=== PATIENT | female | born 1945 | race African-American/Black ===

== ENCOUNTER 2020-06-25 19:00 | Inpatient (IN) | payer MEDICARE ==
[2020-06-25 19:30] VITALS: BP 159/104
--- NOTE | 2020-06-25 20:30 | NUR ---
MELINA, PATIENT'S DAUGHTER CALLED. CONDITION UDATE GIVEN. QUESTIONS ANSWERED. SPOKE WITH DAUGHTER 20 MINUTES.
--- NOTE | 2020-06-25 21:00 | NUR ---
PT ARRIVED TO UNIT AT 1900 WITH [facility] STAFF. PT USES A WHEELCHAIR TO AMBULTE AND A HOIER LIFT TO ASSIST WITH TRANSFERS. CALM AND COOPERATIVE WITH STAFF. QUIET AND REFUSES SNACKS. CONSENT OBTAINED FROM JAYDEN RAMOS WHO IS PTS BROTHER. CODE WORD 1116 GIVEN AND POLICIES REVIEWED. PT IS A FULL CODE. HE RELATES THAT SHE HAS RECEIVED HER FINAL COVID SHOT IN APRIL. NEGATIVE PCR DONE ON 06/24/20. SHE DOESNT NEED A NEW COVID SWAB UPON ARRIVAL SINCE IT IS WITHIN 48 HOURS PER [facility] DIRECTOR. PT ABLE TO VOICE NEEDS AND WANTS.
[2020-06-25] MEDS ORDERED: NORVASC2.5 MG PO (22:56)
[2020-06-25] MEDS ORDERED: IMODIUM2 MG PO (22:58)
[2020-06-25] MEDS ORDERED: PAXIL10 MG PO (22:59)
[2020-06-25] MEDS ORDERED: PHAZYME 125 MG125 MG PO (22:59)
[2020-06-25] MEDS ORDERED: THERMOTABS 1 GM1 GM PO (23:00)
[2020-06-25] MEDS ORDERED: ULTRAM50 MG PO (23:00)
[2020-06-25] MEDS ORDERED: ACETAMINOPHEN500 M1 PO (23:01)
--- NOTE | 2020-06-25 23:30 | NUR ---
PT BLOOD PRESSURE 159/104. DR. BARFIELD NOTIFIED. PT ON AMLODIPINE 2.[address] BARFIELD STATED TO START NEW ORDERS OF AMLODIPINE BESYLATE 5 MG PO DAILY. VERIFIED READBACK TO [facility] AND CONFIRMED.
--- NOTE | 2020-06-26 03:16 | NUR ---
PT APPEARS DISTRUSTFUL OF STAFF. SHE REQUESTS WATER WITHOUT A LID OR STRAW, AND REFUSES TO DRINK. PROVIDED UNOPENED WATER BOTTLE. PT EXPRESSES DISSATIFICATION. PT REFUSES TO GO TO BED AND DEMANDS TO SIT IN WHEELCHAIR IN HALLWAY. STATES "I WOULD LIKE TO REQUEST A CHANGE OF VENUE." INFORMED PT OF POLICIES. PT APPEARS ANXIOUS AND STATES "I WOULD LIKE TO SEE MY ELECTRIC LINEMAN NOW." UNABLE TO REDIRECT AT THIS TIME.
--- NOTE | 2020-06-26 04:27 | NUR ---
URINE SAMPLE COLLECTED VIA STERILE PROCEDURE. PT TOLERATED WELL. SENT TO LAB.
[2020-06-26 04:32] VITALS: BP 159/104; BMI 33.7
[2020-06-26 05:46] LABS: BILIRUBIN NEGATIVE (NEGATIVE); KETONE MODERATE mg/dL (NEGATIVE); NITRITE NEGATIVE (NEGATIVE); UROBILINOGEN NORMAL mg/dL (< 2)
[2020-06-26 05:47] LABS: BACTERIA MANY HPF (NONE SEEN); SQUAMOUS EPITHELIAL 0-5 HPF (0-4); WHITE CELLS - URINE 25-50 HPF (0-4)
[2020-06-26 06:00] LABS: BASOPHILS 0.2 % (0-2); EOSINOPHILS 0.4 % (0-7); HEMATOCRIT 41.8 % (36.0-48.0); HEMOGLOBIN 13.4 g/dL (12-16); IMMATURE GRANULOCYTES 0.2 % (0-5); LYMPHOCYTE ABS# 1.19 10x3/uL (1.18-3.74); LYMPHOCYTES 21.7 % (15-50); MCH 29.6 pg (26.0-34.0); MCHC 32.1 g/dL (31.0-37.0); MCV 92.5 fL (80.0-100.0); MEAN PLATELET VOLUME 9.7 fL (7.4-10.4); MONOCYTES 9.9 % (2-11); NEUTROPHIL ABS# 3.71 10x3/uL (1.56-6.13); NEUTROPHILS 67.6 % (40-80); PLATELET COUNT 192 10x3/uL (130-400); RBC 4.52 10x6/uL (4.00-5.40); RDW 15.5 % (11.5-14.5); WBC 5.5 10x3/uL (4.8-10.8)
[2020-06-26 06:55] LABS: ALBUMIN 3.2 g/dL (3.4-5.0); ANION GAP 15.6 mmol/L (8-16); BILIRUBIN - TOTAL 0.46 mg/dL (0.2-1.3); CALCIUM 9.1 mg/dL (8.5-10.1); CARBON DIOXIDE 25.4 mmol/L (21.0-32.0); CHOL - HDL RATIO 2.3 ratio (2.3-4.1); CREATININE - SERUM 0.9 mg/dL (0.6-1.3); LDL-HDL RATIO 1.2 ratio (1.5-3.5); PROTEIN - SERUM 7.7 g/dL (6.4-8.2); THYROID STIMULATING HORMONE 0.46 uIU/mL (0.36-3.74)
[2020-06-26 08:15] VITALS: BP 137/93
[2020-06-26 13:57] VITALS: Wt 81.4 kg
--- NOTE | 2020-06-26 14:07 | NUR ---
nurse spoke with pt daughter at this time. passcode given. she inquired how pt was doing, was she talking or eating. she stated she knew it was her thyroid cause she was not taking medications like she was suppose too. nurse went over admission labs noting the thyroid lab was in normal limits. her urine noted bacteria so as soon as that was cultured for antibiotics. she wanted to know if she was eating or taking medications. nurse stated she did take medications whole at this time. she did not eat breakfast but ate a bit of breakfast. staff that it would be better to wait until the weekend to allow her to settle in before visitors. she was welcome to try a phone call to see how she would handle a phone call. she verbalizied understanding.
--- NOTE | 2020-06-26 14:26 | NUR ---
pt laying in bed at this time. pt has been calm and cooperative with staff. pt was compliant with staff with care and medications this A.M. pt is a total care and lift. pt did assist with ADLS. no parnoid behavior noted thus far. pt spoke with staff calm and friendly. bed alarm in place and active. will cont plan of care.
[2020-06-26 20:00] VITALS: BP 132/71
--- NOTE | 2020-06-26 23:08 | NUR ---
PT IS RECEIVED IN HER ROOM IN BED. QUIET AND WITHDRAWN. VSS. PT WATCHFUL OF STAFF. NO PM MEDICATIONS ORDERED. REFUSES HS SNACK. PT IS A TOTAL ASSIST. EASY TO REDIRECT.
[2020-06-27 07:16] LABS: RAPID PLASMA REAGIN Non Reactive (Non Reactive)
[2020-06-27 09:25] VITALS: BP 154/96
--- NOTE | 2020-06-27 14:31 | NUR ---
ALERT, CALM, QUIET. DURING MORNING MED PASS, PATIENT CHEEKED LEVAQUIN AND LATER SPIT IT ON BED. PATIENT WAS LATER COMPLIANT WITH HER LEVAQUIN. MEDS ADMIN PER ORDERS. NO FURTHER ADVERSE BEHAVIORS NOTED. CONT. POC, MONITORING FOR CHEEKING OF MEDS.
--- NOTE | 2020-06-27 22:21 | NUR ---
PATIENT IN BED WITH EYES CLOSED. NO MEDS DUES THIS EVENING. RECEIVED IN REPORT THAT SHE IS VERY WATCHFUL OF STAFF. SHE HAS TO BE WATCHED TAKING MEDS BECAUSE SHE WILL CHEEK THEM. WILL FOLLOW POC
[2020-06-28 00:03] VITALS: BP 149/69
[2020-06-28 09:11] VITALS: BP 160/113
--- NOTE | 2020-06-28 18:57 | NUR ---
Patient rec'd this am lying in bed. She is A/O times 1 to person. She is med compliant and takes meds whole. She likes to lie in bed and stay to herself. She did not attend any socialization today
[2020-06-28 20:00] VITALS: BP 142/71
--- NOTE | 2020-06-28 20:58 | NUR ---
RECEIVED PATIENT IN ROOM, SHE IS AWAKE, ALERT AND ORIENTED, HOWEVER SHE IS SUSPICIOUS OF EVERYTHING, SHE WAS COMPLIANT WITH WITH MEDS THEY WERE OPENED IN FRONT OF HER AND EXPLAINED WHAT THEY WERE FOR. SHE IS ABLE TO MAKE ALL OF HER NEEDS KNOWN. WILL FOLLOW POC
[2020-06-29 09:53] VITALS: BP 130/70
--- NOTE | 2020-06-29 11:31 | PSY ---
PATIENT NAME:MOHIT CELIS MEDICAL RECORD: [id number] : 43 LOCATION:[facility] ADMISSION DATE: 06/25/20 ACCOUNT: [id number] PSYCHIATRIC EVALUATION DATE OF EVALUATION: 06/26/20 IDENTIFYING DATA: The patient is a 74-year-old female and she is admitted to the hospital on a voluntary basis. CHIEF COMPLAINT: Some aggression and depression. HISTORY OF PRESENT ILLNESS: The patient resides in [facility]. The patient has been refusing medications for the last 5 days. She has also been having some behaviors where she is refusing breakfast and lunch. She is also refusing to have a bath and we helped with activity of daily living and has been incontinent. She has also been easily agitated and difficult to redirect. She at one point remained in her bed with her eyes closed, wrapped up in towels. She was anxious and not happy and wanted to be transferred to a different place. Then, she refused to go to bed and then insists on staying in her wheelchair in the hallway and she stated "I want to see my magnetic prospector now." She is transferred by a Сергей lift. She is able to propel herself in the wheelchair. Also, the patient reports that she is not sure why she is here, just that she did something that she just got in trouble and she does not know why. PAST MEDICAL HISTORY: Significant for hypertension, hypothyroidism, and muscle weakness and glaucoma. PAST PSYCHIATRIC HISTORY: The patient denies any history; however, there is a diagnosis of depression. The patient states she does not want to talk about it. FAMILY HISTORY: None is known, noncontributory. ALLERGIES: INCLUDE PENICILLIN, IODINE, AND CODEINE. CURRENT MEDICATIONS: Include Norvasc 2.5 mg, Imodium 2 mg, p.o. Paxil 10 mg, Simethicone 125 mg, sodium chloride 1 gram, tramadol 50 mg q.6 hours p.r.n. for pain, and acetaminophen 1000 mg p.o. q.6 hours for pain. SOCIAL HISTORY: The patient states that she has a son. She never smoked, never used alcohol. No recreational drug use. The patient will not disclose where she used to work or anything about her education nor personal information. MENTAL STATUS EXAM: The patient is alert and oriented to person, place, time, disoriented to situation. Her speech is soft, low tone, volume that escalates. Eye contact is fair. Her posture is within normal limits. There is some evidence of psychomotor retardation. Her mood is depressed. Her affect is flat, narrow in range. The patient denies any suicidal or homicidal ideation. She also denies seeing any auditory or visual hallucinations. Her general fund of knowledge is probably appropriate for her education level. Her thought processes are guarded and has decreased concentration and abstraction abilities. There appears at this point, the patient has denied any history of sexual, physical, or emotional trauma. Her strengths are her ability to participate in treatment. Her weaknesses are her psychosocial stressors. ASSESSMENT: AXIS I: Anxiety and depression. AXIS II. Maybe some cluster B personality characteristics. AXIS III: Hypertension, hypothyroidism, and chronic physical debility. AXIS IV: Moderate stressors. AXIS V: Global assessment of functioning is 40. PLAN: At this time, the patient is going to be admitted to the hospital for comprehensive medical, psychological, and social evaluation. She will be treated with both mood, thought, and memory enhancing medications. Her long-term prognosis is fair. TRANSINT:[id number] Voice Confirmation ID: [id number] DOCUMENT ID: [id number] Dictated By: DANII JAUREGUI I have interviewed/examined the above patient and agree with these documented findings. DANDRE FULLER MD at 1200 at 1131 CC: [id number] DICTATION DATE: 06/26/201820 AVIONICS TECHNICIAN: 06/26/[address] [facility] [address] [place] [address]
--- NOTE | 2020-06-29 12:04 | NUR ---
RECEIVED PATIENT LYING IN BED WITH EYES OPEN AT THIS TIME. PATIENT IS AWAKE AND ALERT X2. CALM AND COOPERATIVE WITH ASSESSMENT AT THIS TIME. PATIENT DOES NOT ATTEMPT TO ASSIST WITH ADLS. PATIENT DOES SHOW PARANOID BEHAVIOR AT THIS TIME. PATIENT STATED "SHE IS NOT SURE WHAT THOSE MEDICATIONS ARE SHE DOES NOT WANT TO TAKE THOSE MEDS AT THIS TIME." STAFF WILL ATTEMPT AT LATER TIME. PATIENT VOICED CONCERNS ABOUT MEDS BEING CRUSHED IN APPLESAUCE OR PUDDING. PATIENT REFUSED X 3 TO TAKE MEDS CRUSHED IN PUDDING OR APPLESAUCE. REDIRECT AND REORIENT NEEDED. FALL PRECAUTIONS IN PLACE FOR SAFETY.
[2020-06-29 19:30] VITALS: BP 116/65
--- NOTE | 2020-06-29 21:05 | NUR ---
RECEIVED PATIENT IN HER ROOM, SHE WAS COMPLIANT WITH MEDS, MEDS OPENED IN FRONT OF HER, NOT TO PARANOID AT THIS TIME. SHE CAN MAKE ALL OF HER NEEDS KNOWN. WILL FOLLOW POC
--- NOTE | 2020-06-30 09:06 | NUR ---
Nutrition Re-Assessment Diet: Regular PO intake: ~20% average x last 9 meals; ate ~58% average yesterday. Appetite improving per MD notes. Last BM: none recorded since admit Wt: 172# (06/26/20) Meds noted: probiotics, abx No new labs. Estimated nutrition needs remain unchanged from initial nutrition assessment at this time. Nutrition diagnosis: Inadequate energy intake r/t AMS, advanced age AEB PO intake ~20% average x last 9 meals. Patient is starting to progress towards meeting nutrition goals. Recommendations/Interventions: -Continue Regular diet. Will continue to honor food preferences. -RD will add Ensure TID. -Will continue to monitor PO intake and wt trend. -RD will follow-up 07/02/20.
[2020-06-30 11:59] VITALS: BP 125/74
--- NOTE | 2020-06-30 15:40 | NUR ---
RECEIVED PATIENT IN BED WITH EYES CLOSED. RESPONDS TO VERBAL STIMULI. AWAKE AND ALERT X1. CALM AND COOPERATIVE WITH ASSESSMENT AT THIS TIME. PRESCRIBED MEDS PROVIDED ORDERED. MEDS REFUSED X3. PATIENT WILL HOLD MEDICATIONS AND EXAMINED THEM SEVERAL MINUTES, THEN REFUSES TO TAKE THEM. PATIENT IS PARANOID REGARDING STAFF THINKS THAT STAFF IS TRYING TO POISON HER. PATIENT REQUESTS ANY TIME A DRINK IS BROUGHT INTO HER ROOM THAT IS EMPTIED INTO THE SINK AND TAP WATER IS APPLIED INTO CUP BROUGHT IN PER STAFF. REDIRECT AND REORIENT NEEDED. FALL PRECAUTIONS IN PLACE FOR SAFETY. WILL CONTINUE PLAN OF CARE.
[2020-06-30 22:10] VITALS: BP 139/83
--- NOTE | 2020-06-30 22:18 | NUR ---
PT IS ALERT AND ORIENTED TO SELF ONLY. SHE IS RECEIVED IN HER BED WATCHING OUT THE WINDOW. PT REFUSED MOST OF HER MEDICATIONS STATING THAT SHE DOESNT TAKE ANY OF THOSE AND WILL NOT START TAKING THEM NOW. SHE ONLY WANTED HER NORVASC AND THEY HAD TO BE OPENED IN FRONT OF HER. PT RELATES THAT SHE DOESNT WANT TO PUT POISON IN HER BODY. PT REFUSES HS SNACK. DIFFICULT TO REDIRECT. MONITOR FOR SAFETY.
[2020-07-01 08:00] VITALS: BP 137/70
--- NOTE | 2020-07-01 11:42 | NUR ---
RECEIVED PATIENT IN BED WITH EYES OPEN. AWAKE AND ALERT TO PERSON ONLY. CALM AND COOPERATIVE WITH ASSESSMENT AT THIS TIME. PRESCRIBED MEDICATIONS PROVIDED ORDERED. PATIENT IS NONCOMPLIANT WITH MEDICATIONS AT THIS TIME. PARANOIA NOTED AT THIS TIME. PATIENT EXAMINES MEDICATIONS AND THEN STATES "SHE DOES NOT WANT MEDS." STAFF ENTERS ROOM WITH A GLASS OF WATER, PATIENT REQUEST THAT IT WAS EMPTIED IN THE SINK AND FILLED WITH TAP WATER SO PATIENT CAN SEE THERE IS NOTHING NOTED IN THE GLASS. REDIRECT AND REORIENT NEEDED. FALL PRECAUTIONS IN PLACE FOR SAFETY. WILL CONTINUE PLAN OF CARE.
[2020-07-01 12:46] LABS: BASOPHILS 0.2 % (0-2); EOSINOPHILS 2.8 % (0-7); HEMATOCRIT 40.8 % (36.0-48.0); HEMOGLOBIN 13.4 g/dL (12-16); LYMPHOCYTE ABS# 1.23 10x3/uL (1.18-3.74); LYMPHOCYTES 24.3 % (15-50); MCH 29.9 pg (26.0-34.0); MCHC 32.8 g/dL (31.0-37.0); MCV 91.1 fL (80.0-100.0); MEAN PLATELET VOLUME 9.9 fL (7.4-10.4); MONOCYTES 8.9 % (2-11); NEUTROPHIL ABS# 3.24 10x3/uL (1.56-6.13); NEUTROPHILS 63.8 % (40-80); PLATELET COUNT 154 10x3/uL (130-400); RBC 4.48 10x6/uL (4.00-5.40); RDW 15.3 % (11.5-14.5); WBC 5.1 10x3/uL (4.8-10.8)
[2020-07-01 14:46] LABS: ALBUMIN 2.9 g/dL (3.4-5.0); ALKALINE PHOSPHATASE 76 U/L (30-120); ALT (SGPT) 9 U/L (10-68); BILIRUBIN - TOTAL 0.42 mg/dL (0.2-1.3); CALC OSMOLALITY 277 mosm/kg (275-300); CALCIUM 8.8 mg/dL (8.5-10.1); CARBON DIOXIDE 24.3 mmol/L (21.0-32.0); CHLORIDE - SERUM 104 mmol/L (98-107); CREATININE - SERUM 0.5 mg/dL (0.6-1.3); GLUCOSE 81 mg/dL (74-106); PROTEIN - SERUM 7.2 g/dL (6.4-8.2); SODIUM 139 mmol/L (136-145); UREA NITROGEN 15 mg/dL (7-18); eGFR NON AFRICAN AMERICAN > 90 mL/min (90-120)
--- NOTE | 2020-07-01 15:24 | PN ---
PATIENT:MOHIT CELIS MEDICAL RECORD: [id number] LOCATION:[facility] ADMISSION DATE: 06/25/20 PROGRESS NOTE DATE OF SERVICE: 06/30/2020 SUBJECTIVE: The patient's case was discussed with staff. She has no new complaint. OBJECTIVE: The patient is not eating well. She has been started on Megace and hopefully this will assist with her appetite. I am also going to change her from Paxil to a different antidepressant. ASSESSMENT: Dementia. PLAN: As above, the patient will be treated with antidepressant medication and an appetite stimulant. TRANSINT:[id number] Voice Confirmation ID: [id number] DOCUMENT ID: [id number] DANDRE FULLER MD at 1524 CC: [id number] DICTATION DATE: 06/30/20 1643 SUPERVISOR METER SHOP: 07/01/20 0100 ADM IN [facility] [address] [place] [address]
[2020-07-01 20:16] VITALS: BP 144/81
--- NOTE | 2020-07-01 20:30 | NUR ---
RECEIVED PATIENT IN HALLWAY SITTING IN RECLINER. WITHDRAWN FROM PEERS, AND DOES NOT SOCIALIZE WITH PEERS. CALM AND COOPERATIVE WITH ASSESSMENT. PATIENT REFUSED TO TAKE HER MEDICATIONS TONIGHT. REDIRECTED NEEDED. NOW RESTING QUIETLY IN BED. CONTINUE PLAN OF CARE.
[2020-07-02 08:00] VITALS: BP 128/76
--- NOTE | 2020-07-02 10:38 | NUR ---
A FAMILY MEMBER CALLED FROM [place] DEMANDING THE NAME, LOCATION. NURSE GAVE CORRECT ROOM NUMBER, LOCATION AND NAME OF FACILITY.
--- NOTE | 2020-07-02 11:20 | NUR ---
NURSE SPOKE WITH SON ON HOW SHE WAS DOING AND VISITATION HOURS. PASSCODE GIVEN.
--- NOTE | 2020-07-02 12:39 | NUR ---
Patients son calls with passcode verified. He is inquiring on how his mother is doing. Information given per requested.
--- NOTE | 2020-07-02 15:12 | NUR ---
Nutrition follow-up: Diet order: Regular PO intake for 07/01/20 ~53% average x 3 meals; pt refused all meals 06/30 x 3 Pt has also been refusing medication; nurse reports pt is very paranoid and feels she is being poisened by nurses, medical staff No new wt since admit. Admit wt" 172# No BM recorded; Miralax ordered but unsure if pt is taking Pts po intake improved yesterday. Will continue to provide food choices and honor all food preferences. Will offer nutritional supplements Recomendations: Please get a current wt to chart if medically feasible. Follow-up:
--- NOTE | 2020-07-02 15:18 | PN ---
PATIENT:MOHIT CELIS MEDICAL RECORD: [id number] LOCATION:[facility] ADMISSION DATE: 06/25/20 PROGRESS NOTE DATE OF SERVICE: 07/01/2020 SUBJECTIVE: The patient's case was discussed with staff. She has no new complaint. OBJECTIVE: The patient is minimally interactive, withdrawn, and clearly impaired cognitively. Unfortunately, she is also paranoid and is not wanting to take medications or eat the food we provide her. She will talk about why. ASSESSMENT: Dementia. PLAN: The patient will be maintained on current medications. Lab indicates that she is not dehydrated to any appreciable degree. TRANSINT:[id number] Voice Confirmation ID: [id number] DOCUMENT ID: [id number] DANDRE FULLER MD at 1518 CC: [id number] DICTATION DATE: 07/01/20 1540 GRADUATE SCHOOL DEAN: 07/01/20 2317 ADM IN [facility] [address] [place] [address]
--- NOTE | 2020-07-02 16:30 | NUR ---
pt sitting up in chair at this time. calm and cooperative with staff and peers. pt confused and disoriented. pt is redirectable. some paranoid behavior remains. redirect behavior as needed. reorient as needed. total assist with martha lift. compliant with meds, vitals and assessments. pt conts to be withdrawn from peers. bed alarm in place and active. will cont plan of care.
[2020-07-02 20:00] VITALS: BP 111/70
--- NOTE | 2020-07-02 21:45 | NUR ---
RECEIVED PATIENT IN HER ROOM, SHE IS ALERT, ORIENTED, COMPLIANT WITH MEDS, MEDS OPENED IN FRONT OF HER. SHE DOESN'T SEEM "SUSPICIOUS" OF STAFF SHE DID LAST WEEKEND. SHE IS ABLE TO MAKE ALL OF HER NEEDS KNOWN. WILL FOLLOW POC
[2020-07-03 08:54] VITALS: BP 116/74
--- NOTE | 2020-07-03 13:37 | PN ---
PATIENT:MOHIT CELIS MEDICAL RECORD: [id number] LOCATION:[facility] ADMISSION DATE: 06/25/20 PROGRESS NOTE DATE OF SERVICE: 07/02/2020 SUBJECTIVE: The patient's case was discussed with staff. She has no new complaint. OBJECTIVE: The patient is only oriented to person. She is paranoid, withdrawn and is not taking her medications, but is unable to explain why. When I say unable, I think that it is not a matter of being unwilling, I do not think she has the cognition to adequately explain. I have instructed the staff to give her as much to eat and drink as possible in an open containers since that seems to be the only thing that she will eat or drink from, the food that is prepared in the kitchen and comes covered on the tray, she would not eat because she has not opened the packaging. TRANSINT:[id number] Voice Confirmation ID: [id number] DOCUMENT ID: [id number] DANDRE FULLER MD at 1337 CC: [id number] DICTATION DATE: 07/02/20 1616 DINKEY BRAKEMAN: 07/02/20 1835 ADM IN [facility] [address] [place] [address]
--- NOTE | 2020-07-03 14:35 | NUR ---
Alert, quiet, cooperative, much encouragement needed with meds. Initially cheeked Levaquin, but took it after a few minutes. No aggression noted. Appetite poor. Paranoid at times. Cont. POC as previusly outlined.
--- NOTE | 2020-07-03 17:41 | NUR ---
PT C/O OF INDIGESTION THIS SHIFT. PROTONIX ORDERED BID AND FIRST DOSE GIVEN THIS SHIFT. PT CONT TO C/O OF STOMACH HURTING.
--- NOTE | 2020-07-03 17:43 | NUR ---
NURSE GAVE AN UPDATE TO FAMILY MEMBER ON HOW SHE WAS DOING. PASSCODE GIVEN. SHE WAS EATING BETTER AND TAKING MEDS. SHE WAS C/O OF STOMACH ISSUES AT THIS TIME. SHE DID NOT EAT WELL AT DINNER BUT OTHER MEALS WAS BETTER. SHE VERBALIZIED UNDERSTANDING AND THANKED NURSE.
--- NOTE | 2020-07-03 18:22 | NUR ---
FAMILY MEMBER CALLED WANTING TO SPEAK WITH PT. PT REFUSED CALL STATING SHE DID NOT FEEL WELL AND WOULD CALL THEM BACK LATER.
--- NOTE | 2020-07-03 18:23 | NUR ---
NURSE SPOKE WITH FAMILY MEMBER. PASSCODE GIVEN. HE WANTED TO KNOW HOW SHE WAS DOING AND WHY SHE WAS SENT TO A FACILITY SO FAR FROM [place]. NURSE STATED FACILITY REFERRED PT TO THIS UNIT AND THIS UNIT ACCEPTED NURSE WAS UNAWARE OF WHY FACILITY CHOSE TO SEND PT HERE. NURSE GAVE AN UPDATE ON HOW PT WAS DOING SHE WAS C/O OF STOMACH GAS. PT WAS TAKING MEDS, EATING MORE OF MEALS AND PARTICIPATING IN GROUPS. HE ASKED WE CANT COME SEE HER CAN WE? WHY WOULD YOU SEND HER TO A PLACE WE CANT SEE HER." NURSE STATED VISITATION TIMES AND EDUCATED HE COULD VISIT THE PT. HE STATED WELL I LIVE IN [place] SEE?" NURSE STATED HE COULD VISIT AT SET TIMES OR CALL. HE VERBALIZED UNDERSTANDING.
[2020-07-03 20:00] VITALS: BP 122/62
--- NOTE | 2020-07-03 21:35 | NUR ---
RECEIVED PATIENT IN HER ROOM, LYING IN BED, SHE IS STILL SOMEWHAT CAUTIOUS STILL OF STAFF AND ABOUT TAKING MEDICINE, SHE ALWAYS SAYS "WHAT MEDICINE IS THAT?". SHE WAS COMPLIANT WITH HER MEDS. SHE CAN MAKE HER NEEDS KNOWN BUT MOST OF THE TIME DOES NOT SHE WILL VOID AND NOT MAKE IT KNOWN. WILL FOLLOW POC
[2020-07-04 09:55] VITALS: BP 117/66
--- NOTE | 2020-07-04 15:56 | NUR ---
PT SITTING UP IN CHAIR AT THIS TIME. PT IS CALM AND COOPERATIVE WITH STAFF. PT COMPLIANT WITH MEDS, VITALS AND ASSESSMENTS. PT REQURIES TOTAL ASSISTANCE WITH ADLS. PT HAS TO TALK WITH STAFF TO GAIN TRUST OR PT WILL BE DISTRUSTING. CONFUSED AND ALERT TO SELF ONLY. REDIRECT AND REORIENT NEEDED. PT TAKES MEDS WHOLE. CHAIR ALARM IN PLACE AND ACTIVE. WILL CONT PLAN OF CARE.
[2020-07-04 20:00] VITALS: BP 119/68
--- NOTE | 2020-07-04 20:48 | NUR ---
PT IS ALERT AND ORIENTED TO SELF ONLY. SHE HAS POOR INSIGHT INTO HER SITUATION. RECEIVED IN HER ROOM IN BED WITH EYES OPEN. SHE IS DISTRUSTFUL OF STAFF. REFUSES HS SNACK. REQUESTS THAT HER MEDICATIONS BE OPENED IN FRONT OF HER. SHE IS COMPLIANT WITH MOST OF HER MEDICATIONS. SHE REFUSED MIRALAX. SHE RELATES THAT SHE GOT TO SPEAK WITH ALOT OF HER FAMILY TODAY AND IT WAS NICE. RESISTANT TO REDIRECTION. MONITOR FOR SAFETY.
[2020-07-05 08:07] VITALS: BP 130/67
--- NOTE | 2020-07-05 13:54 | NUR ---
PATIENT QUIET THIS SHIFT. CONTINUED RELUCTANCE TO TAKE MEDS. CONTINUED PARANOIA. APPETITE POOR. MEDS WERE ADMIN PER ORDERS. NO ADVERSE REACTION TO MEDS. CONT. PLAN OF CARE.
[2020-07-05 20:00] VITALS: BP 102/57
--- NOTE | 2020-07-05 20:45 | NUR ---
PT IS ALERT AND ORIENTED TO SELF ONLY. SHE HAS POOR INSIGHT INTO HER SITUATION. SHE IS RECEIVED IN THE HALLWAY OUTSIDE THE NURSES STATION IN A WHEELCHAIR. SHE IS CALM AND COOPERATIVE WITH STAFF. PT IS MORE OPEN TO CONVERSATION WITH STAFF. COMPLIANT WITH ALL MEDICATIONS. EASY TO REDIRECT. MONITOR FOR SAFETY.
--- NOTE | 2020-07-06 21:42 | NUR ---
PT IS ALERT AND ORIENTED TO SELF ONLY. POOR INSIGHT INTO HER SITUATION. RECEIVED IN HER ROOM RESTING CALMY IN BED. NO PARANOID BEHAVIOR NOTED. CALM AND COOPERATIVE WITH CARE. AFFECT IS BLUNTED. COMPLIANT WITH ALL MEDICATIONS. EASY TO REDIRECT. MONITOR FOR SAFETY.
[2020-07-06 22:11] VITALS: BP 124/65
[2020-07-07 08:00] VITALS: BP 121/66
--- NOTE | 2020-07-07 09:48 | NUR ---
Nutrition Follow-up: Diet: Regular PO intake: ~53% average x last 6 meals; however, patient ate 75-100% x 3 meals yesterday Last BM: 07/07/20 Wt: 172# (06/26/20), no new weight Meds noted: linzess, megace, probiotics Labs reviewed. Previously patient had reported to MD that she was not hungry and staff stated that she had not been wanting to eat. Megace started 06/30/20 and appears to have started working. Patient with good PO intake yesterday. Recommend continue current diet. Will continue to monitor PO intake and wt trend. Needs new weight. RD will follow-up for Re-assessment on 07/09/20.
--- NOTE | 2020-07-07 14:04 | PN ---
PATIENT:MOHIT CELIS MEDICAL RECORD: [id number] LOCATION:[facility] ADMISSION DATE: 06/25/20 PROGRESS NOTE DATE OF SERVICE: 07/03/2020 SUBJECTIVE: The patient's case was discussed with staff. She has no new complaint. OBJECTIVE: The patient has begun taking her medications and eating better. I am encouraged by this progress. ASSESSMENT: Dementia. PLAN: The patient will be started on Namenda to assist with her cognitive impairment. TRANSINT:[id number] Voice Confirmation ID: [id number] DOCUMENT ID: [id number] DANDRE FULLER MD at 1404 CC: [id number] DICTATION DATE: 07/03/20 175 MERCHANDISER RETAIL REPRESENTATIVE: 07/03/20 1812 ADM IN [facility] [id number] [place] [address]
--- NOTE | 2020-07-07 17:00 | NUR ---
RECEIVED IN PATIENT ROOM. CALM AND COOPERATIVE WITH CARE AND ASSESSMENT. NO PARANOID BEHAVIORS TODAY. COMPLIANT WITH MEDICATIONS. EATING HER FOOD. REDIRECT AND REORIENT NEEDED. EATING DINNER AT THIS TIME. CONTINUE PLAN OF CARE.
[2020-07-07 22:16] VITALS: BP 148/88
--- NOTE | 2020-07-08 01:01 | NUR ---
B)RECEIVED PATIENT LYING IN THE BED WITH THE COVERS PULLED OVER HER HEAD. ORIENTED TO PERSON AND PLACE. POOR INSIGHT RELATING "JUST NOT FEELING GOOD." CALM AND COOPERATIVE. RELATED IT IS COLD IN HER ROOM. WARM BLANKET BROUGHT TO PATIENT AND APPLIED TO PATIENT. I)ADMINISTER MEDS AND MONITOR COMPLIANCE. REORIENT NEEDED. R)MED COMPLIANT. REORIENTS HOWEVER IS FORGETFUL AND DOES NOT RETAIN INFORMATION. P)CONTINUE POC AND PROVIDE SAFE ENVIRONMENT.
[2020-07-08 04:30] LABS: BILIRUBIN NEGATIVE (NEGATIVE); KETONE NEGATIVE (NEGATIVE); NITRITE NEGATIVE (NEGATIVE); UROBILINOGEN NORMAL mg/dL (< 2)
--- NOTE | 2020-07-08 13:25 | NUR ---
REC'D PT IN BED WITH EYES OPEN. RESPONDS TO VERBAL STIMULI. AWAKE AND ALERT TO PERSON ONLY. PRESCRIBED MEDS PROVIDED ORDERED. MED COMPLIANT. NO BEHAVIORS NOTED AT THIS TIME. FALL PRECAUTIONS IN PLACE FOR SAFETY. WILL CPOC.
--- NOTE | 2020-07-08 16:48 | PN ---
PATIENT:MOHIT CELIS MEDICAL RECORD: [id number] LOCATION:[facility] ADMISSION DATE: 06/25/20 PROGRESS NOTE DATE OF SERVICE: 07/07/2020 SUBJECTIVE: The patient's case was discussed with staff. She has no new complaint. OBJECTIVE: The patient has shown significant improvement. She is more cooperative and less suspicious. She is compliant with medications. ASSESSMENT: Dementia. PLAN: The patient will have her Namenda increased slightly. Her long-term prognosis is guarded. TRANSINT:[id number] Voice Confirmation ID: [id number] DOCUMENT ID: [id number] DANDRE FULLER MD at 1648 CC: [id number] DICTATION DATE: 07/07/20 1734 COMMUNITY SUPPORT ASSOCIATE: 07/08/20 0050 ADM IN [facility] [id number] [place] [address]
[2020-07-08 20:00] VITALS: BP 118/73
--- NOTE | 2020-07-08 20:06 | NUR ---
RECEIVED IN BEDROOM. RESTING IN BED WITH EYES CLOSED. RESPONS TO VOICE. CALM AND COOPERATIVE WITH CARE AND ASSESSMENT. NO SIGNS OF PARANOIA. REDIRECT AND REORIENT NEEDED. CONTINUES TO REST QUIETLY IN BED. CONTINUE PLAN OF CARE.
[2020-07-09 08:16] VITALS: BP 135/76
--- NOTE | 2020-07-09 10:13 | NUR ---
Received patient in bed with eyes open. Calm and cooperative with assessment at this time. Prescribed medications provided as ordered. Med compliant. No paranoia behaviors noted at this time. Redirect and reorient as needed. Fall precautions in place for safety. Will continue plan of care.
--- NOTE | 2020-07-09 10:43 | NUR ---
Nutrition Re-Assessment Diet: Regular PO intake: ~86% average x last 9 meals Last BM: 07/09/20 Wt: 172# (06/26/20)- no new weight Meds noted: linzess, megace, probiotics Labs reviewed Estimated nutrition needs and nutrition diagnosis remain unchanged from initial nutrition assessment at this time. PO intake continues to improve with Megace. Patient is progressing towards meeting nutrition goals at this time. Recommendations/Interventions: -Recommend continue current diet. Will continue to honor food preferences. -Recommend continue appetite stimulant as medically feasible. -RD will continue to monitor PO intake and wt trend. -RD will follow-up within 7 days.
--- NOTE | 2020-07-09 16:20 | PN ---
PATIENT:MOHIT CELIS MEDICAL RECORD: [id number] LOCATION:[place] [address] ADMISSION DATE: 06/25/20 PROGRESS NOTE DATE OF SERVICE: 07/08/2020 SUBJECTIVE: The patient's case was discussed with staff. She has no new complaint. OBJECTIVE: The patient is in good behavioral control and with some difficulty, she is taking her medications. She has shown improvement in both her appetite and sleep. ASSESSMENT: Dementia. PLAN: Current medicines have been reviewed and will be maintained. Long-term prognosis is guarded. TRANSINT:[id number] Voice Confirmation ID: [id number] DOCUMENT ID: [id number] DANDRE FULLER MD at 1620 CC: [id number] DICTATION DATE: 07/08/20 1700 MAJOR LEAGUE BASEBALL PLAYER: 07/09/20 0026 ADM IN [facility] [address] [place] [address]
[2020-07-09 20:00] VITALS: BP 132/64
--- NOTE | 2020-07-09 21:12 | NUR ---
PT IS ALERT AND ORIENTED TO SELF ONLY. RECEIVED IN HER ROOM IN BED. ABLE TO VOICE NEEDS AND WANTS. COMPLIANT WITH ALL MEDICATIONS. REDIRECT AND REORIENT NEEDED. MONITOR FOR SAFETY.
[2020-07-10 08:51] VITALS: BP 130/64
--- NOTE | 2020-07-10 14:06 | NUR ---
Patient rec'd this am lying in bed. She is A/O times 2 to person and situation. She is med compliant and takes meds whole. She is total care and transfers by a martha lift. She has displayed no signs of Paronoia as she took her meds without opening them in front of her and she only ask one question related to what meds she was taking this morning. She has a little confution. She can follow directions. She swallowed all pills this am and observation of checking of meds. She can be directed and redirected.
--- NOTE | 2020-07-10 16:13 | PN ---
PATIENT:MOHIT CELIS MEDICAL RECORD: [id number] LOCATION:[place] [facility] ADMISSION DATE: 06/25/20 PROGRESS NOTE DATE OF SERVICE: 07/09/2020 SUBJECTIVE: The patient's case was discussed with staff. She has no new complaint. OBJECTIVE: The patient has shown significant improvement and is more cooperative. ASSESSMENT: Dementia. PLAN: I am going to increase the patient's Effexor slightly. I believe that there is a depressive component to her current situation. She will be monitored for clinical side effects. TRANSINT:[id number] Voice Confirmation ID: [id number] DOCUMENT ID: [id number] DANDRE FULLER MD at 1613 CC: [id number] DICTATION DATE: 07/09/20 1636 INSURANCE COUNSEL: 07/09/20 2340 ADM IN [facility] [address] [place] [address]
[2020-07-10 20:00] VITALS: BP 117/64
--- NOTE | 2020-07-11 01:34 | NUR ---
B) Patient is alert and oriented to person and being in hospital, calm and cooperative with care this shift, no parinoid ststements noted, I) Administered scheduled medications as ordered, assisted with needs, total care, R) Medication compliant, able to voice needs, P) Continue plan of care.
--- NOTE | 2020-07-11 11:57 | PN ---
PATIENT:MOHIT CELIS MEDICAL RECORD: [id number] LOCATION:[facility] ADMISSION DATE: 06/25/20 PROGRESS NOTE DATE OF SERVICE: 07/10/2020 SUBJECTIVE: The patient's case was discussed with staff. She has no new complaint. OBJECTIVE: The patient is more interactive, but still withdrawn. ASSESSMENT: Dementia. PLAN: The patient is eating and sleeping well. I believe that if this level of improvement continues, she can reasonably be discharged after the weekend. TRANSINT:[id number] Voice Confirmation ID: [id number] DOCUMENT ID: [id number] DANDRE FULLER MD at 1157 CC: [id number] DICTATION DATE: 07/10/20 170 MR TEACHER: 07/10/20 1900 ADM IN [facility] [address] [place] [address]
[2020-07-11 15:05] VITALS: BP 117/67
--- NOTE | 2020-07-11 15:30 | NUR ---
PT CALM AND COOPERATIVE. CONFUSED AND ALERT TO SELF ONLY. REDIRECT AND REORIENT NEEDED. TOTAL ASSIST AND JONH LIFT. CHAIR ALARM IN PLACE AND ACTIVE. WILL CONT PLAN OF CARE.
[2020-07-11 15:32] VITALS: BP 117/67
[2020-07-11 20:00] VITALS: BP 152/83
--- NOTE | 2020-07-11 20:19 | NUR ---
RECEIVED PATIENT IN HER ROOM, LYING IN THE BED, FLAT AFFECT, SHE HAS POOR INSIGHT, SHE IS ORIENTED TO SELF, TIME AND PLACE, COMPLIANT WITH MEDS. SHE CAN MAKE HER NEEDS KNOWN, SHE STAYS TO HERSELF, CALL العلي IN PLACE. WILL FOLLOW POC
[2020-07-12 09:00] VITALS: BP 151/70
--- NOTE | 2020-07-12 09:42 | NUR ---
PT IN W/C AT THIS TIME. PT IS CALM AND COOPERATIVE WITH CARE. PT IS ALERT TO SELF ONLY. NO BEHAVIORS NOTED. PT CAN MAKE SOME NEEDS KNOWN. TOTAL ASSIST WITH OJ[facility] LIFT. PT DOES ASSIST WITH CARE AT TIMES. CONTS TO TAKE ALL MEDICATIONS PRESCRIBED. BED AND CHAIR ALARM IN PLACE. WILL CONT PLAN OF CARE.
--- NOTE | 2020-07-12 13:19 | NUR ---
pt was eating lunch and began to cough at this time. staff assisted pt get to get food up at this time. pt breathing okay at this time. pt did finish lunch.
--- NOTE | 2020-07-12 21:48 | NUR ---
B)RECEIVED PATIENT LYING IN BED AWAKE. ALERT AND ORIENTED TO SELF ONLY. NO INSIGHT INTO THE REASON FOR HOSPITALIZATION. COOPERATIVE AND INTERACTS WITH STAFF APPROPRIATELY. WITHDRAWN AROUND PEERS. I)ADMINISTER MEDS AND MONITOR COMPLIANCE. REORIENT NEEDED. R)MED COMPLIANT. POOR REORIENTATION. PATIENT HAS DIFFICULTY RETAINING INFORMATION. P)CONTINUE POC AND PROVIDE SAFE ENVIRONMENT.
--- NOTE | 2020-07-13 10:29 | NUR ---
REC'D PT IN BED WITH EYES OPEN. AWAKE AND ALERT TO PERSON. CALM AND COOPERATIVE WITH ASSESSMENT. PRESCRIBED MEDS PROVIDED ORDERED. MED COMPLIANT. NO BEHAVIORS NOTED AT THIS TIME. FALL PRECAUTIONS IN PLACE FOR SAFETY. WILL CPOC.
[2020-07-13 12:10] VITALS: BP 140/70
--- NOTE | 2020-07-13 19:51 | NUR ---
RECEIVED IN BEDROOM. RESTING IN BED WITH EYES CLOSED. CALM AND COOPERATIVE WITH CARE AND ASSESSMENT. NO SIGNS OF PARANOIA. REDIRECT AND REORIENT NEEDED. CONTINUES TO REST QUIETLY IN BED. CONTINUE PLAN OF CARE.
[2020-07-13 21:11] VITALS: BP 103/62
[2020-07-14 10:34] VITALS: BP 117/78
--- NOTE | 2020-07-14 16:21 | NUR ---
ALERT, CALM, QUIET, COOPERATIVE WITH STAFF REQUESTS. MEDS ADMIN PER ORDERS WITH COMPLETE MED COMPLIANCE NOTED. TAKES MEDS WHOLE. NO ADVERSE REACTIONS TO MEDS. PATIENT DOES OCCASIONALLY REQUEST TO GO TO ROOM. CONT PLAN OF CARE.
--- NOTE | 2020-07-14 20:22 | NUR ---
RECEIVED IN HALLWAY OUTSIDE OF NURSES STATION. RESTING QUIETLY WITH EYES OPEN. CALM AND COOPERATIVE WITH CARE AND ASSESSMENT. NO SIGNS OF PARANOIA. REDIRECT AND REORIENT NEEDED. RESTING QUIETLY IN BED AT THIS TIME. CONTINUE PLAN OF CARE.
[2020-07-14 20:49] VITALS: BP 159/72
--- NOTE | 2020-07-15 07:20 | NUR ---
REC'D PT IN BED WITH EYES OPEN. AWAKE AND ALERT X 2. CALM AND COOPERATIVE WITH ASSESSMENT. PRESCRIBED MEDS PROVIDED ORDERED. MED COMPLIANT. NO BEHAVIORS NOTED AT THIS TIME. REDIRECT AND REORIENT NEEDED. FALL PRECAUTIONS IN PLACE. WILL CPOC.
[2020-07-15 08:00] VITALS: BP 148/74
--- NOTE | 2020-07-15 13:59 | NUR ---
Nutrition Re-Assessment Diet: Regular PO intake: ~77% average x last 9 meals Last BM: 07/15/20 Wt: 172# (06/26/20), no new weight Meds noted: ethan moreno No new chem labs Recommendations/Interventions: -Needs new weight as medically feasible. -Recommend continue Regular diet. Will continue to honor food preferences. -RD will follow-up within 7 days.
--- NOTE | 2020-07-15 15:41 | PN ---
PATIENT:MOHIT CELIS MEDICAL RECORD: [id number] LOCATION:[place] [facility] ADMISSION DATE: 06/25/20 PROGRESS NOTE DATE OF SERVICE: 07/14/2020 SUBJECTIVE: The patient's case was discussed with staff. She has no new complaint. OBJECTIVE: The patient is in good behavioral control with limited insight about her situation. ASSESSMENT: Dementia. PLAN: Current medicines have been reviewed. I anticipate that she can be discharged from the hospital as soon as the office of long-term care gives us permission to return her to the intermediate. It is my opinion that she is not representing an acute danger to herself or others. TRANSINT:[id number] Voice Confirmation ID: [id number] DOCUMENT ID: [id number] DANDRE FULLER MD at 1541 CC: [id number] DICTATION DATE: 07/14/20 1632 PRESERVATIONIST: 07/15/20 0020 ADM IN [facility] [address] [place] [address]
--- NOTE | 2020-07-15 20:12 | NUR ---
RECEIVED IN DAYROOM. RESTING QUIETLY IN DAYROOM, WATCHING TV. CALM AND COOPERATIVE WITH CARE AND ASSESSMENT. NO SIGNS OF PARANOIA. REDIRECT AND REORIENT NEEDED. CONTINUES TO REST QUIETLY IN DAYROOM. CONTINUE PLAN OF CARE.
[2020-07-15 20:29] VITALS: BP 109/60
[2020-07-16 10:34] VITALS: BP 140/76
--- NOTE | 2020-07-16 10:42 | NUR ---
Rec'd patient this am lying in bed. She is A/O times 2 to person and situation. She is med compliant and takes her meds whole. Most of the time, patient is calm and cooperative and loves to talk but other times she is quiet and has a flat affect.. She is directable and redirectable. She is transferred by a Сергей lift. No assessment of patient checking meds or paranoia. We are planning discharge soon.
--- NOTE | 2020-07-16 14:53 | PN ---
PATIENT:MOHIT CELIS MEDICAL RECORD: [id number] LOCATION:[facility] ADMISSION DATE: 06/25/20 PROGRESS NOTE DATE OF SERVICE: 07/15/2020 SUBJECTIVE: The patient's case was discussed with staff. She has no new complaint. OBJECTIVE: The patient is in good behavioral control with poor insight about her situation. She is much more verbal and interactive. She unfortunately is not fully oriented. ASSESSMENT: Dementia. PLAN: The patient has dramatically improved and can be transitioned back to the custodial as soon as the office of long-term care gives approval. TRANSINT:[id number] Voice Confirmation ID: [id number] DOCUMENT ID: [id number] DANDRE FULLER MD at 1453 CC: [id number] DICTATION DATE: 07/15/201728 BRUSH POLISHER: 07/16/20 0208 ADM IN [place] [id number] [place] [id number]
[2020-07-16 20:00] VITALS: BP 112/60
--- NOTE | 2020-07-16 21:48 | NUR ---
B)RECEIVED PT LYING IN BED. ORIENTED TO PERSON, PLACE AND YEAR. NO INSIGHT TO THE REASON FOR HOSPITALIZATION. PT IS DEMANDING AND EXPECTS EVERYTHING TO BE DONE EXACTLY THE WAY SHE WANTS IT TO BE IE PATIENT HAD 2+ NON PITTING EDEMA TO ANKLES. NURSE EXPLAINED TO PATIENT AND ATTEMPTED TO TAKE SOCKS OFF FOR THE NIGHT AND PATIENT TOLD NURSE "NO, I WANT MY SOCKS ON." WITHDRAWN. I)ADMINISTER MEDS AND MONITOR COMPLIANCE. REORIENT NEEDED. R)MED COMPLIANT HOWEVER RELATED SHE DID NOT NEED ANYMORE MEDS SHE HAD ALREADY TAKEN ALOT OF MEDS TODAY. EXPLAINED TO PATIENT HER MEDICATIONS ARE ORDERED FOR DAY AND NIGHT. POOR REORIENTATION. PATIENT APPEARS DISINTERESTED. P)CONTINUE POC AND PROVIDE SAFE ENVIRONMENT.
[2020-07-17 07:52] VITALS: BP 156/84
--- NOTE | 2020-07-17 10:59 | NUR ---
PT SITTING IN CHAIR AT THIS TIME. PT IS CALM AND COOPERATIVE AT THIS TIME. CONFUSION NOTED. REDIRECT AND REORIENT NEEDED. LIMITED INSIGHT NOTED. WITHDRAWN FROM STAFF UNLESS DIRECTLY ENGAGED. CAN MAKE NEEDS KNOWN. COMPLIANT WT MEDS, VITALS AND ASSESSMENTS. CONTS TO REQUIRE TOTAL ASSISTANCE WITH ADLS. PT JONH LIFT. EDEMA NOTED TO BILATERAL LEGS. TAKES MEDS WHOLE. BED AND CHAIR ALARM IN PLACE AND ACTIVE. NO BEHAVIORS NOTED. WILL CONT PLAN OF CARE.
--- NOTE | 2020-07-17 16:11 | PN ---
PATIENT:MOHIT CELIS MEDICAL RECORD: [id number] LOCATION:[place] [facility] ADMISSION DATE: 06/25/20 PROGRESS NOTE DATE OF SERVICE: 07/16/2020 SUBJECTIVE: The patient's case was discussed with staff. She has no new complaint. OBJECTIVE: The patient is in good behavioral control. She has limited insight about her situation. She is tolerating her medicines well. She is much less paranoid and much more cooperative. ASSESSMENT: Dementia. PLAN: The patient will be transitioned back to the half-way soon. She is unable to walk and she came to us from a half-way, but for some reason Agusto Castellano feels that they need to see her prior to giving approval. So, at this point, she will be here for an unspecified amount of time because Agusto Castellano apparently can take up to a couple of weeks to give a decision on this. TRANSINT:[id number] Voice Confirmation ID: [id number] DOCUMENT ID: [id number] DANDRE FULLER MD at 1611 CC: [id number] DICTATION DATE: 07/16/20 1611 SUPERVISOR PIT AND AUXILIARIES: 07/16/20 2357 ADM IN [facility] [address] [place] [id number]
--- NOTE | 2020-07-17 19:39 | NUR ---
B) Patient is alert and oriented to self, able to make needs known, calm and cooperative this shift. I) Administered scheduled medications as ordered, assisted with ADLs, R) Mediaction compliant, total assist, Сергей lift, P) Continue plan of care.
[2020-07-17 20:00] VITALS: BP 111/61
[2020-07-18 07:48] VITALS: BP 132/69
--- NOTE | 2020-07-18 09:31 | NUR ---
PT LAYING IN BED AT THIS TIME. PT IS CALM AND COOPERATIVE WITH STAFF AND PEERS. PT CAN BE WITHDRAWN AND SOMEWHAT DEMANDING. CAN MAKE NEEDS KNOWN. NO BEHAVIOR NOTED. COMPLIANT WITH MEDS, VITALS AND ASSESSMENTS. TOTAL ASSIST WITH JONH LIFT. PT IS CONFUSED AND ALERT TO SELF ONLY. REDIRECT AND REORIENT NEEDED. TAKES MEDS WHOLE. CHAIR AND BED ALARM IN PLACE AND ACTIVE. WILL CONT PLAN OF CARE.
--- NOTE | 2020-07-18 12:34 | NUR ---
NUTRITION FOLLOW UP: COMMENTS: Patient eating well with most meals > 75% eaten. Now new labs or weight since June. DIET: Regular Diet PO INTAKE: 80% avg for last 8 meals WEIGHT: 172 lbs on 06/26 BM: x 1 on 07/17 SIG LABS: No new labs since 07/01 SIG MEDS: Protonix, Megace, Vit D RECOMMENDATIONS: Continue Regular Diet as tolerated Continue Megace appetite stimulant RD to follow up on 07/22
--- NOTE | 2020-07-18 14:01 | PN ---
PATIENT:MOHIT CELIS MEDICAL RECORD: [id number] LOCATION:[place] [facility] ADMISSION DATE: 06/25/20 PROGRESS NOTE DATE OF SERVICE: 07/17/2020 SUBJECTIVE: The patient's case was discussed with staff. She has no new complaint. OBJECTIVE: The patient was seen today by a service representative from [facility], who interviewed her. That service representative will present the case to their committee and will give us a ruling as to whether or not Mohit qualifies for a penitentiary. Interestingly, she comes to us from a penitentiary, has dementia and is not ambulatory, so it is a mystery to me why this is being done, but this is what they are requiring. ASSESSMENT: Dementia. PLAN: The patient will be discharged back to the penitentiary as soon as the office of long-term care and their contracted intermediate [facility] gives approval. TRANSINT:[id number] Voice Confirmation ID: [id number] DOCUMENT ID: [id number] DANDRE FULLER MD at 1401 CC: [id number] DICTATION DATE: 07/17/20 1611 BALL ASSEMBLER: 07/17/20 2326 ADM IN [facility] [address] [place] [id number]
[2020-07-18 20:00] VITALS: BP 137/79
--- NOTE | 2020-07-18 20:48 | NUR ---
PT RECEIVED IN BED WITH BLANKET OVER HER FACE. ALERT AND ORIENTED TO SELF ONLY. COMPLIANT WITH ALL MEDICATIONS. EASY TO REDIRECT. REFUSES HS SNACK. NO PARANOID BEHAVIORS NOTED. MONITOR FOR SAFETY.
[2020-07-19 09:42] VITALS: BP 129/78
--- NOTE | 2020-07-19 10:43 | PN ---
PATIENT:MOHIT CELIS MEDICAL RECORD: [id number] LOCATION:[facility] ADMISSION DATE: 06/25/20 PROGRESS NOTE DATE OF SERVICE: 07/18/2020 SUBJECTIVE: The patient's case was discussed with staff. She has no new complaint. OBJECTIVE: The patient is in good behavioral control with limited insight about her situation. She has not been aggressive. ASSESSMENT: Dementia. PLAN: The patient will be maintained on current medications. I anticipate she can be discharged back to the [facility] soon and as documented yesterday we are simply waiting on approval from the appropriate authorities that monitor who gets admitted to the [facility] and why. TRANSINT:[id number] Voice Confirmation ID: [id number] DOCUMENT ID: [id number] DANDRE FULLER MD at 1043 CC: [id number] DICTATION DATE: 07/18/20 1526 REHAB DIRECTOR: 07/18/20 2239 ADM IN [facility] [address] [place] [address]
--- NOTE | 2020-07-19 16:23 | NUR ---
ALERT, CALM, NO PARANOIA NOTED. MEDS ADMIN PER ORDERS WITH COMPLETE MED COMPLIANCE NOTED. APPETITE GOOD. LOTION APPLIED TO DRY SKIN. LARGE BM NOTED. COOPERATIVE WITH [facility]ANT[facility]-CARE. NO ADVERSE REACTION NOTED FROM MEDICATIONS. CONTINUE PLAN OF CARE, MONITORING FOR FURTHER PARANOIA.
[2020-07-19 22:17] VITALS: BP 115/65
--- NOTE | 2020-07-19 22:45 | NUR ---
PT RECEIVED SITTING IN BED WITH EYES OPEN. ALERT AND ORIENTED TO SELF AND SITUATION. RELATES THAT SHE HAD A GOOD DAY TODAY. NO PARANOID BEHAVIORS NOTED. COMPLIANT WITH ALL HS MEDICATIONS. EASY TO REDIRECT. MONITOR FOR SAFETY.
--- NOTE | 2020-07-20 02:40 | NUR ---
PT SITTING RESTLESSLY IN A GERICHAIR IN THE HALLWAY OUTSIDE THE NURSES STATION FOR SAFETY. REQUIRES CONSTANT REDIRECTION. CONTINUE TO MONITOR FOR EFFECTIVENESS.
[2020-07-20 08:00] VITALS: BP 133/84
--- NOTE | 2020-07-20 10:47 | PN ---
PATIENT:MOHIT CELIS MEDICAL RECORD: [id number] LOCATION:[facility] ADMISSION DATE: 06/25/20 PROGRESS NOTE DATE OF SERVICE: 07/19/2020 SUBJECTIVE: The patient's case was discussed with staff. OBJECTIVE: The patient is oriented to person. She slept well and ate reasonably well yesterday. She has not been paranoid and has no thoughts of harming herself or others. She is unable to ambulate and has been for a long time. ASSESSMENT: Dementia. PLAN: The patient will be discharged as soon as [facility] [place] approval. TRANSINT:[id number] Voice Confirmation ID: [id number] DOCUMENT ID: [id number] DANDRE FULLER MD at 1047 CC: [id number] DICTATION DATE: 07/19/20 110 PACKAGING SALES REPRESENTATIVE: 07/19/20 1413 ADM IN [facility] [address] [place] [address]
--- NOTE | 2020-07-20 16:59 | NUR ---
ALERT, CALM, COOPERATIVE, QUIET. APPETITE GOOD. NO ADVERSE BEHAVIORS NOTED. MEDS ADMIN PER ORDERS WITH COMPLETE MED COMPLIANCE NOTED. NO ADVERSE REACTION TO MEDS. CONTINUE PLAN OF CARE.
--- NOTE | 2020-07-20 19:53 | NUR ---
RECEIVED IN BEDROOM. STAFF IN ROOM GIVING CARE. CALM AND COOPERATIVE WITH CARE AND ASSESSMENT. NO SIGNS OF PARANOIA. REDIRECT AND REORIENT NEEDED. RESTING IN BED WITH EYES CLOSED AT THIS TIME. CONTINUE PLAN OF CARE.
[2020-07-20 21:15] VITALS: BP 143/73
[2020-07-21 08:27] VITALS: BP 144/82
--- NOTE | 2020-07-21 13:29 | PN ---
PATIENT:MOHIT CELIS MEDICAL RECORD: [id number] LOCATION:[place] [facility] ADMISSION DATE: 06/25/20 PROGRESS NOTE DATE OF SERVICE: 07/20/2020 SUBJECTIVE: The patient's case was discussed with staff. She has no new complaint. OBJECTIVE: The patient denies intent to harm herself or others. She does tolerate her medicines well. She is in good behavioral control. She is sleeping and eating well. ASSESSMENT: Dementia. PLAN: The patient can be discharged to the retirement as soon as the office of long-term care gives approval. TRANSINT:[id number] Voice Confirmation ID: [id number] DOCUMENT ID: [id number] DANDRE FULLER MD at 1329 CC: [id number] DICTATION DATE: 07/20/20 1105 MOBILE PRACTICE LEAD: 07/20/20 1416 ADM IN [facility] [address] [place] [id number]
--- NOTE | 2020-07-21 17:30 | NUR ---
RECEIVED IN PATIENT ROOM. CALM AND COOPERATIVE WITH CARE AND ASSESSMENT. NO AGGRESSIVE BEHAVIOR. NO PARANOIA NOTED. COMPLIANT WITH MEDICATIONS. REDIRECT AND REORIENT NEEDED. EATING DINNER AT THIS TIME. CONTINUE PLAN OF CARE.
[2020-07-21 20:00] VITALS: BP 136/75
--- NOTE | 2020-07-22 01:04 | NUR ---
RECEIVED IN BEDROOM. RESTING IN BED WITH EYES OPEN. CALM AND COOPERATIVE WITH CARE AND ASSESSMENT. NO SIGNS OF PARANIOA. REDIRECT AND REORIENT NEEDED. RESTING IN BED EYES CLOSED AT THIS TIME. CONTINUE PLAN OF CARE.
--- NOTE | 2020-07-22 12:20 | NUR ---
Nutrition Follow-up: Diet: Regular PO intake: ~96% average x last 9 meals Last BM: 07/21/20 Wt: 179# (07/20/20); Admit Wt: 172# (06/26/20) Meds noted: ethan moreno Labs noted: alb 2.9(L) Recommend continue current diet. RD will follow-up within 7 day.
--- NOTE | 2020-07-22 15:30 | PN ---
PATIENT:MOHIT ECLIS MEDICAL RECORD: [id number] LOCATION:[place] [facility] ADMISSION DATE: 06/25/20 PROGRESS NOTE DATE OF SERVICE: 07/21/2020 SUBJECTIVE: The patient's case was discussed with staff. She has no new complaint. OBJECTIVE: The patient is in good behavioral control with limited insight about her situation. ASSESSMENT: Dementia. PLAN: The patient is ready for discharge, but approval from the office of long-term care is pending. I have reviewed her medications and will maintain them. TRANSINT:[id number] Voice Confirmation ID: [id number] DOCUMENT ID: [id number] DANDRE FULLER MD at 1530 CC: [id number] DICTATION DATE: 07/21/20 1608 HYDROGRAPHIC ENGINEER: 07/22/20 0014 ADM IN [facility] [address] [place] [address]
[2020-07-22] MEDS ORDERED: ACETAMINOPHEN500 M1 PO (16:51)
[2020-07-22] MEDS ORDERED: NAMENDA5 MG PO (16:52)
[2020-07-22] MEDS ORDERED: MEGACE40 MG PO (16:52)
[2020-07-22] MEDS ORDERED: PERPHENAZINE2 MG PO (16:52)
[2020-07-22] MEDS ORDERED: EFFEXOR37.5 MG PO (16:52)
[2020-07-22] MEDS ORDERED: KENALOG 0.1 % 115 GM TOPICAL (16:53)
[2020-07-22] MEDS ORDERED: VITAMIN D325 MC1 PO (16:53)
--- NOTE | 2020-07-22 17:14 | NUR ---
RECEIVED IN PATIENT ROOM. RESTING IN BED WITH EYES OPEN. CALM AND COOPERATIVE WITH CARE AND ASSESSMENT. NO AGGRESSON. NO PARANOIA NOTED. REDIRECT AND REORIENT NEEDED. EATING DINNER AT THIS TIME. CONTINUE PLAN OF CARE.
[2020-07-22 20:00] VITALS: BP 120/68
--- NOTE | 2020-07-22 20:40 | NUR ---
RECEIVED IN BEDROOM. RESTING IN BED WITH EYES OPEN. CALM AND COOPERATIVE WITH CARE AND ASSESSMENT. NO SIGNS OF AGGRESSION. REDIRECT AND REORIENT NEEDED. RESTING IN BED WITH EYES CLOSED AT THIS TIME. CONTINUE PLAN OF CARE.
--- NOTE | 2020-07-23 08:07 | NUR ---
SW CONTACTED SON AND ALERTED TO DISCHARGE. PT WILL BE GOING BACK TO HER [facility]. NO OTHER NEEDS WERE VOICED AT THIS TIME.
[2020-07-23 08:32] VITALS: BP 128/77
[2020-07-23 09:43] LABS: SARS-CoV-2 ANTIGEN NEGATIVE- SARS-COV-2 (NEGATIVE)
--- NOTE | 2020-07-23 15:07 | NUR ---
Nutrition Re-Assessment Diet: Regular PO intake: ~96% average x last 9 meals Last BM: 07/23/20 Wt: 179# (07/20/20) Meds noted: ethan moreno No new chem labs Estimated nutrition needs and nutrition diagnosis remain unchanged from initial nutrition assessment at this time. Patient is progessing towards meeting nutrition goals at this time. Recommendations/Interventions: -Recommend continue current diet. -Will continue to honor food preferneces. -RD will follow-up within 7 days.
--- NOTE | 2020-07-23 16:06 | PN ---
PATIENT:MOHIT CELIS MEDICAL RECORD: [id number] LOCATION:[place] [facility] ADMISSION DATE: 06/25/20 PROGRESS NOTE DATE OF SERVICE: 07/22/2020 SUBJECTIVE: The patient's case was discussed with staff. She has no new complaint. OBJECTIVE: The patient is in good behavioral control with poor insight about her situation. She is partially oriented. She is sleeping and eating well and shows no evidence of acute or direct dangerousness to herself or others. ASSESSMENT: Dementia. PLAN: The office of long-term care has given permission for her to be discharged. She will be [facility] back to the [facility] [place]. She could not be discharged today because the [facility] is an hour and a half away and they could not come and get her until tomorrow. TRANSINT:[id number] Voice Confirmation ID: [id number] DOCUMENT ID: [id number] DANDRE FULLER MD at 1606 CC: [id number] DICTATION DATE: 07/22/20 1649 SERVICE STATION OPERATOR: 07/23/20 0022 ADM IN [place] [id number] [place] [address]
--- NOTE | 2020-07-23 17:00 | NUR ---
PATIENT DISCHARGED TO [facility]. TRANSPORTED VIA FACILITY [facility]AN. PERSONAL BELONGINGS SENT WITH PATIENT. DISCHARGE PAPERWORK FAXED TO FACILITY AND HARD COPY SENT WITH PATIENT.
--- NOTE | 2020-07-23 18:41 | NUR ---
RECEIVED THIS AM SITTING IN WHEELCHAIR IN HALLWAY.IS COMPLIANT WITH STAFF AND MEDS.VERY QUITE,KEEPS TO SELF.NO PARANOIA OBSERVED.DICHARGED TO [facility] [place] VIA THEIR [facility] AT 1700.HAS ALL PERSONAL ITEMS AND INSTRUCTIONS.
--- NOTE | 2020-07-24 13:09 | DS ---
PATIENT:MOHIT CELIS :43 MEDICAL RECORD: [id number] DISCHARGE SUMMARY ADMISSION DATE: 06/25/20 DISCHARGE DATE: 07/23/20 IDENTIFYING DATA: The patient is 74 years old and she was admitted to the hospital on a voluntary basis. CHIEF COMPLAINT: Aggression and depression. HISTORY OF PRESENT ILLNESS: The patient lives in the [facility] in [place]. She has been refusing medications for 4 days prior to admission and has also been having disruptive behaviors. She was refusing to eat. She has been refusing to bathe and participate in any of the normal activities at the facility and she has become incontinent. She is easily agitated. She will remain with her eyes closed and wrapped up in a towel. She refuses to assist with transfers or personal care. She makes delusional statements and demands to see a criminal justice lawyer. She was generally paranoid and was particularly angry with caregivers who were white. HOSPITAL COURSE: The patient was admitted to the hospital and fully evaluated from both a medical, psychological, and social standpoint. She was treated with both mood stabilizing and memory enhancing medications and showed improvement through the course of her hospitalization. She was eating, drinking, conversant, and pleasant. She had an evaporation of her paranoid delusional symptoms with the use of the antipsychotic medications and an improvement in her underlying depressive symptoms with the use of antidepressant medication. She was subsequently [facility] to the [facility]. DISCHARGE DIAGNOSES: AXIS I: Major neurocognitive disorder of the Alzheimer's type. Major depression, moderate severity. AXIS II: Cluster B personality traits. AXIS III: Hypertension and hypothyroidism. AXIS IV: Moderate stressors. AXIS V: Global assessment of functioning is 45. PLAN: At the time of discharge, the patient was in good behavioral control and had no thoughts of harming herself or others. She was tolerating her medicines well. Her long-term prognosis is guarded. Brief supportive and educational interventions were made and followup is to be through the [facility] and her primary care physician at the [facility]. TRANSINT:[id number] Voice Confirmation ID: [id number] DOCUMENT ID: [id number] DANDRE FULLER MD at 1309 CC: [id number] DICTATION DATE: 07/23/20 1747 [employer] RENTAL CLERK: 07/24/20 0606 DIS IN 07/23/20 [facility] [address] [place] [id number]
== END 2020-07-23 17:00 | DRG 57 ==
LOC: D.PSYCH 19:00
PROVIDERS: Family Medicine; ADMIT Psychiatry & Neurology Psychiatry; ATTEND Psychiatry & Neurology Psychiatry
DX: G30.9 Alzheimer's disease, unspecified (principal); F32.3 Major depressive disorder, single episode, severe with psychotic features; F02.81 Dementia in other diseases classified elsewhere, unspecified severity, with behavioral disturbance; N39.0 Urinary tract infection, site not specified; F41.8 Other specified anxiety disorders; R53.81 Other malaise; E03.9 Hypothyroidism, unspecified; I10 Essential (primary) hypertension; E55.9 Vitamin D deficiency, unspecified; K59.00 Constipation, unspecified; R63.0 Anorexia; K21.9 Gastro-esophageal reflux disease without esophagitis; M79.605 Pain in left leg; M79.604 Pain in right leg